=== PATIENT | female | born 1995 | race Caucasian/White ===

== ENCOUNTER 2019-11-29 14:30 | Inpatient (IN) ==
[2019-11-29] MEDS ORDERED: MoRPHine SULFATE 4 MG/ML 1 ML CARP\\VIAL IV STA (14:40)
[2019-11-29] MEDS ORDERED: MULTI-VITAMIN INFUSION 10 ML, THIAMINE HCL 100 MG, FOLIC ACID 1 MG in SODIUM CHLORIDE 0... IV STA (14:40)
[2019-11-29] MEDS ORDERED: ONDANSETRON INJ 2 MG/ML 2 ML VIAL IV STA (14:40)
--- NOTE | 2019-11-29 14:47 | Emergency Department Note ---
History of Present Illness General Chief complaint: Abdominal Pain Stated complaint: RUQ Pain Hx GB removal 1.5 months ago Time Seen by Provider: 11/29/19 14:30 Source: patient Limitations: no limitations History of Present Illness Provider complaint: Upper abdominal pain Onset (ago): hour(s) (This morning) Location: abdomen Radiation: non-radiation Severity: severe Quality: + sharp Exacerbated By: + eating This is a 23-year-old female with a history of alcohol related pancreatitis presenting with upper abdominal pain greater on the right side. It started sometime this morning. She has been drinking heavily and last drank alcohol last night. She is currently a resident at [facility]. She describes her pain as very sharp and worse with eating. She states it is severe and feels similar to when she had pancreatitis. She does state that she has had alcoholic pancreatitis in the past and underwent cholecystectomy about 2 months ago in [place]. She denies any fever, vomiting, chest pain, shortness of breath, urinary symptoms or any chance of . She has no known exposure to COVID or any cough or cold symptoms. She is currently having her period and states that it is normal in timing and flow. Past Med/Surg History Medical History Alcohol dependence Pancreatitis Surgical History Hx of cholecystectomy Social History Preferred Language: Arabic Feels Safe at Home: Yes Smoking Status: Former smoker Hx Alcohol Use: Yes Review of Systems See HPI for pertinent positives & negatives. and A total of 10 systems reviewed and were otherwise negative Physical Exam Vital Signs Vital Signs - 24 hr 11/29/19 14:26 11/29/19 14:40 Temperature 36.7 C Temperature Source Oral Pulse Rate 99 H Pulse Rhythm Regular Pulse Strength Normal Respiratory Rate 22 Respiratory Effort / Characteristics Non-Labored Spontaneous Respiratory Depth Normal Respiratory Pattern Regular Blood Pressure 163/64 H Blood Pressure Mean 97 Blood Pressure Position Lying Pulse Oximetry 100 100 Oxygen Delivery Method Room Air Room Air Sepsis Recent Fever Within 48 Hours No Sepsis New/Unexplained Change in Mental Status No Sepsis Action Taken by Nursing No Action Required Constitutional: Vital signs reviewed. Eyes: Pupils are equal round reactive to light. Conjunctiva are noninjected. ENT: Pharynx is clear without erythema or exudate. Mucous membranes are moist. Neck supple without meningeal signs. Respiratory: Clear to auscultation bilaterally. Breath sounds are equal bilaterally. Cardiovascular: Regular rate and rhythm. No rubs or gallops. GI: Soft, nondistended with epigastric and right upper quadrant tenderness. No guarding. Bowel sounds are present. Musculoskeletal: No peripheral edema. No lower extremity tenderness. Integumentary: No cyanosis. or jaundice. Neurological: The patient is awake and alert. No focal deficits. Psychiatric: Normal affect. Not anxious appearing. Course Administered Medications Discontinued Medications Multivitamins 10 ml/ Thiamine HCl 100 mg/ Folic Acid 1 mg/Sodium Chloride 1,011.2 mls @ 1,011.2 mls/hr IV .Q1H STA Stop: 11/29/19 15:39 Last Admin: 11/29/19 15:00 Dose: 1,011.2 mls/hr Documented by: [id number] Morphine Sulfate (Morphine Sulfate) 4 mg IV NOW STA Stop: 11/29/19 14:41 Last Admin: 11/29/19 15:00 Dose: 4 mg Documented by: [id number] Ondansetron HCl (Zofran) 4 mg IV NOW STA Stop: 11/29/19 14:41 Last Admin: 11/29/19 15:00 Dose: 4 mg Documented by: [id number] Medical Decision Making Differential Diagnosis Pancreatitis, PUD, IBS, choledocholithiasis, IBD Medical Records Attestation: I reviewed the patient's medical records. I did perform a limited focused review of portions of the patient's old chart on the electronic medical record. The patient has had no prior visits to this hospital. Home Medications Current Medication List: was personally reviewed by me Laboratory Data Attestation: I reviewed the patient's lab results. Result diagrams: 11/29/19 14:43 11/29/19 14:43 Lab Results 11/29/19 11/29/19 Range/Units 14:43 14:43 WBC 11.22 H (4.8-10.8) K/uL RBC 4.27 (4.2-5.4) M/uL Hgb 12.7 (12.0-16.0) g/dL Hct 38.7 (37-47) % MCV 90.6 (80-100) fL MCH 29.7 (25-34) pg MCHC 32.8 (32-36) g/dL RDW Std Deviation 41.7 (36.4-46.3) fL RDW Coeff of Lavonne 12.8 (11.5-14.5) % Plt Count 183 (130-400) K/uL MPV 11.5 H (7.4-10.4) fL Immature Gran % (Auto) 0.3 % Neut % (Auto) 74.4 % Lymph % (Auto) 19.7 % [place] % (Auto) 4.3 % Eos % (Auto) 1.1 % Baso % (Auto) 0.2 % Immature Gran # (Auto) 0.03 H (0.00-0.02) K/uL Neut # (Auto) 8.36 H (1.4-6.5) K/uL Lymph # (Auto) 2.21 (1.2-3.4) K/uL [place] # (Auto) 0.48 (0.11-0.59) K/uL Eos # (Auto) 0.12 (0-0.5) K/uL Baso # (Auto) 0.02 (0-0.2) K/uL Sodium 135 L (136-145) mmol/L Potassium 3.2 L (3.5-5.1) mmol/L Chloride 106 (98-107) mmol/L Carbon Dioxide 27 (21-32) mmol/L Anion Gap 2.0 L (3-11) BUN 10 (7-18) mg/dl Creatinine 0.79 (0.6-1.2) mg/dl Est Cr Clr Drug Dosing 101.4 ml/min Est GFR ( Amer) 124.0 Est GFR (Non-Af Amer) 107.0 BUN/Creatinine Ratio 12.9 (10-20) Glucose 79 (70-99) mg/dl Calcium 9.5 (8.5-10.1) mg/dl Total Bilirubin 1.1 H (0.2-1) mg/dl AST 29 (15-37) U/L ALT 31 (12-78) U/L Alkaline Phosphatase 75 (45-117) U/L Total Protein 7.3 (6.4-8.2) gm/dl Albumin 3.9 (3.4-5.0) gm/dl Globulin 3.4 (2.5-4.0) gm/dl Albumin/Globulin Ratio 1.1 (0.9-2) Lipase 1874 H (73-393) U/L Blood Pressure Blood Pressure Findings: Elevated blood pressure Blood Pressure Disposition: Referred to patients primary care provider MDM Narrative I did evaluate the patient as noted above. The patient has a history of alcohol dependence and alcohol induced pancreatitis. She is presenting with upper abdominal pain similar to her prior episodes of pancreatitis. She does state that she had been drinking heavily recently and last drank yesterday. She denies having any withdrawal symptoms at this time. IV access was established. I did treat the patient with a banana bag IV. She was also given IV Zofran and morphine. I did order a urine analysis. I did order and review the patient's blood work as noted in the electronic medical record. Electrolytes demonstrate mild hyponatremia and hyperkalemia. Her white count is 11.22. LFTs are unremarkable. Lipase is over 1800. [facility] She is feeling better at this time. She will be hospitalized for further care and evaluation. I did discuss the case with Dr. Palacio and the case management coordinator. Impression & Plan Pancreatitis, Alcohol dependence Discharge Plan Visit Data Chief Complaint: Abdominal Pain Stated Complaint: RUQ Pain Hx GB removal 1.5 months ago ED Provider: Hakeem Elder Discharge Problem: Pancreatitis, Alcohol dependence Patient Disposition: Being Evaluated by Hospitalist Condition: Good Forms Stand Alone Forms: My [facility] Referrals Referrals: PCP,NO [Primary Care Provider] -
[2019-11-29 15:02] LABS: Basophils # (auto) 0.02 K/uL (0-0.2); Basophils % (auto) 0.2 %; Eosinophils # (auto) 0.12 K/uL (0-0.5); Eosinophils % (auto) 1.1 %; Hematocrit (blood only) 38.7 % (37-47); Hemoglobin 12.7 g/dL (12.0-16.0); Immature Granulocytes # (auto) 0.03 K/uL (0.00-0.02); Immature Granulocytes % (auto) 0.3 %; Lymphocytes # (auto) 2.21 K/uL (1.2-3.4); Lymphocytes % (auto) 19.7 %; Mean Corpuscular Hemoglobin 29.7 pg (25-34); Mean Corpuscular Hgb Conc 32.8 g/dL (32-36); Mean Corpuscular Volume 90.6 fL (80-100); Mean Platelet Volume 11.5 fL (7.4-10.4); Monocytes # (auto) 0.48 K/uL (0.11-0.59); Monocytes % (auto) 4.3 %; Neutrophils # (auto) 8.36 K/uL (1.4-6.5); Neutrophils % (auto) 74.4 %; Platelet Count 183 K/uL (130-400); RDW Coefficient of Variation 12.8 % (11.5-14.5); RDW Standard Deviation 41.7 fL (36.4-46.3); Red Blood Count 4.27 M/uL (4.2-5.4); White Blood Count 11.22 K/uL (4.8-10.8)
[2019-11-29 15:26] LABS: Albumin Level 3.9 gm/dl (3.4-5.0); BUN Creatinine Ratio 12.9 (10-20); Calcium 9.5 mg/dl (8.5-10.1); Creatinine Clr Calc Pharmacy 101.4 ml/min; Potassium 3.2 mmol/L (3.5-5.1)
[2019-11-29 15:29] LABS: Albumin Globulin Ratio 1.1 (0.9-2); Bilirubin,Total 1.1 mg/dl (0.2-1); Globulin 3.4 gm/dl (2.5-4.0); Total Protein 7.3 gm/dl (6.4-8.2)
--- NOTE | 2019-11-29 16:05 | History & Physical Report ---
Date of Service November 29, 2019 Assessment & Plan (1) Pancreatitis: Acute pancreatitis due to alcohol lipase is 1800, WBC minimally elevated, Bili is 1.1 will keep NPO LR at 200cc/hr Dilaudid 1mg IV q4 PRN for pain control repeat labs in the morning if she has an appetite tomorrow would consider liquid diet (2) Alcohol dependence: she was at [facility] for alcohol rehab would anticipate she would go back once medically stable place on alcohol withdrawal protocol with Ativan (3) Hypokalemia: will be on LR, repeat BMP in the morning History of Present Illness Chief Complaint: my belly hurts really bad Primary Care Provider: NO PCP 23 yo female with history of alcohol abuse and recurrent episodes of pancreatitis presents to the ED this morning with severe abdominal pain. She says that she has had three other bouts of pancreatitis, felt like this. She says that her third bout was in [place], she was hospitalized and they removed her gall bladder at that time because they felt that she had sludge, could be contributing. She says that she drinks heavily every single day, hard liquor. She has been drinking heavily for at least the past year. She was in college but she had to drop out due to drinking. She admits to occasionally smoking ma rijuana but no other drug use. She moved back to the area from [place] two days ago to go into alcohol rehab at [facility]. She went on a binge 48 hours ago prior to going into rehab, she cannot recall how much she had to drink. She did not have any pain yesterday when she was admitted to rehab. She woke up this morning with severe epigastric pain. She tried to eat some breakfast which immediately made the pain even worse. She had some nausea but did not vomit. The pain was exactly the same as prior bouts of pancreatitis. The pain got a little better with Morphine 4mg IV in the ED. Her vitals were stable except some slight tachycardia. Lipase was elevated at 1800. LFT normal except bili 1.1. WBC minimally elevated. BUN/Cr normal, K low at 3.2. No imaging done. Kept NPO in the ED. Allergies Allergy/AdvReac Type Severity Reaction Status Date / Time No Known Allergies Allergy Verified 11/29/19 16:42 Home Medications Home Medications Medication Instructions Recorded Confirmed Type Excedrin Otc 2 tabs PO Q6H PRN MDD 8 Tablets/24 11/29/19 History Hours Mucinex 400 Mg 400 mg PO Q6H PRN 11/29/19 History acetaminophen 650 mg PO QID PRN 11/29/19 11/29/19 History alum-mag hydroxide-simeth [Maalox 30 ml PO TID PRN 11/29/19 11/29/19 History Advanced] bisacodyl 15 mg PO DAILY PRN 11/29/19 11/29/19 History calcium carbonate [Tums] See Rx Instructions .ROUTE 11/29/19 11/29/19 History .COMPLEX PRN MDD 15 Tablets/24 Hours clonidine HCl 0.1 mg PO TID PRN 11/29/19 11/29/19 History diazepam [Valium] 10 mg PO DIRECTED PRN 11/29/19 11/29/19 History diazepam [Valium] 10 mg PO DIRECTED PRN 11/29/19 11/29/19 History diazepam [Valium] See Rx Instructions .ROUTE .COMPLEX 11/29/19 11/29/19 History dicyclomine 20 mg PO TID PRN 11/29/19 11/29/19 History diphenhydramine HCl [Benadryl] 25 - 50 mg PO Q6H PRN 11/29/19 11/29/19 History docusate sodium [Colace] 100 mg PO DAILY PRN 11/29/19 11/29/19 History doxepin 50 mg PO HS PRN 11/29/19 11/29/19 History folic acid 1 mg PO DAILY 11/29/19 11/29/19 History hydroxyzine pamoate [Vistaril] 50 mg PO TID PRN 11/29/19 11/29/19 History ibuprofen 600 mg PO QID PRN 11/29/19 11/29/19 History levetiracetam See Rx Instructions .ROUTE .COMPLEX 11/29/19 11/29/19 History loperamide [Imodium A-D] 4 mg PO QID PRN 11/29/19 11/29/19 History loratadine [Claritin] 10 mg PO DAILY PRN 11/29/19 11/29/19 History magnesium hydroxide [Milk of 30 ml PO DAILY PRN 11/29/19 11/29/19 History Magnesia] melatonin 5 mg PO HS PRN 11/29/19 11/29/19 History menthol [Cough Drops] See Rx Instructions .ROUTE 11/29/19 11/29/19 History .COMPLEX PRN naloxone 0.4 mg IM DIRECTED PRN 11/29/19 11/29/19 History norethindrone-e.estradiol-iron [Lo 1 tab PO DAILY 11/29/19 11/29/19 History Loestrin Fe] ondansetron HCl [Zofran] 8 mg PO TID PRN 11/29/19 11/29/19 History pantoprazole 20 mg PO DAILY 11/29/19 11/29/19 History polyethylene glycol 3350 [Miralax] See Rx Instructions .ROUTE 11/29/19 11/29/19 History .COMPLEX PRN promethazine 25 mg PO QID PRN 11/29/19 11/29/19 History simethicone [Gas-X Extra Strength] 250 mg PO BID PRN 11/29/19 11/29/19 History thiamine HCl (vitamin B1) 100 mg PO DAILY 11/29/19 11/29/19 History Past Med/Surg History Medical History Alcohol dependence Pancreatitis Surgical History Hx of cholecystectomy Family History (Updated 11/29/19 @ 16:47 by Gilbert Palacio DO) Other Hypertension Social History Preferred Language: Libyan Feels Safe at Home: Yes Smoking Status: Former smoker Hx Alcohol Use: Yes Review of Systems Review of Systems: All systems reviewed & are unremarkable except as noted in HPI & below Constitutional: no fever, no chills, no sweats, no fatigue and no weakness Respiratory: no cough and no dyspnea Cardiovascular: no chest pain, no palpitations, no syncope and no edema Gastrointestinal: + abdominal pain (epigastric, severe, better leaning forward), + early satiety and + nausea; no vomiting, no constipation, no diarrhea/loose stools and no melena Genitourinary: no dysuria, no difficulty urinating and no urinary frequency Physical Exam Constitutional: WD/WN, vitals as above + ill appearing; no acute distress and + uncomfortable Eyes: PERRL, conjunctivae normal, anicteric sclerae ENMT: external ear and nose normal, oropharynx normal Neck: trachea midline, no thyromegaly Respiratory: normal respiratory effort, lungs clear to auscultation Cardiovascular: Rate/Rhythm: regular rhythm and + tachycardic Heart Sounds: normal S1 and normal S2; no murmur Extremities: normal capillary refill; no edema Gastrointestinal (Abdomen): Inspection/Auscultation: abdomen normal to inspection and normal bowel sounds; abdomen not distended Percussion/Palpation: + abdomen tender (epigastric) and abdomen soft; no guarding and abdomen not rigid Musculoskeletal: no cyanosis or clubbing, extremities motor strength 5/5 Skin: no rashes, warm and dry Neurologic: patellar DTR's 2+ bilat, sensation intact and PERRL, EOMI, accommodation nl, no face palsy, no dysarthria Psychiatric: A+Ox3, euthymic affect Lymphatic: no cervical or axillary lymphadenopathy Results & Data Results & Data ([facility]) Vital Signs (Past 12 Hours) Vital Signs Temp Pulse Resp BP Pulse Ox 11/29/19 14:40 100 11/29/19 14:26 36.7 C 99 H 22 163/64 H 100 Laboratory Results Laboratory Results - last 24 hr 11/29/19 11/29/19 11/29/19 14:43 14:43 16:13 WBC 11.22 H RBC 4.27 Hgb 12.7 Hct 38.7 MCV 90.6 MCH 29.7 MCHC 32.8 RDW Std Deviation 41.7 RDW Coeff of Lavonne 12.8 Plt Count 183 MPV 11.5 H Immature Gran % (Auto) 0.3 Neut % (Auto) 74.4 Lymph % (Auto) 19.7 [place] % (Auto) 4.3 Eos % (Auto) 1.1 Baso % (Auto) 0.2 Immature Gran # (Auto) 0.03 H Neut # (Auto) 8.36 H Lymph # (Auto) 2.21 [place] # (Auto) 0.48 Eos # (Auto) 0.12 Baso # (Auto) 0.02 Sodium 135 L Potassium 3.2 L Chloride 106 Carbon Dioxide 27 Anion Gap 2.0 L BUN 10 Creatinine 0.79 Est Cr Clr Drug Dosing 101.4 Est GFR ( Amer) 124.0 Est GFR (Non-Af Amer) 107.0 BUN/Creatinine Ratio 12.9 Glucose 79 Calcium 9.5 Total Bilirubin 1.1 H AST 29 ALT 31 Alkaline Phosphatase 75 Total Protein 7.3 Albumin 3.9 Globulin 3.4 Albumin/Globulin Ratio 1.1 Lipase 1874 H Urine Color Urine Appearance Urine pH Ur Specific [place] Urine Protein Urine Glucose (UA) Urine Ketones Urine Blood Urine Nitrite Urine Bilirubin Urine Urobilinogen Ur Leukocyte Esterase POC Ur Test NEG 11/29/19 16:13 WBC RBC Hgb Hct MCV MCH MCHC RDW Std Deviation RDW Coeff of Lavonne Plt Count MPV Immature Gran % (Auto) Neut % (Auto) Lymph % (Auto) [place] % (Auto) Eos % (Auto) Baso % (Auto) Immature Gran # (Auto) Neut # (Auto) Lymph # (Auto) [place] # (Auto) Eos # (Auto) Baso # (Auto) Sodium Potassium Chloride Carbon Dioxide Anion Gap BUN Creatinine Est Cr Clr Drug Dosing Est GFR ( Amer) Est GFR (Non-Af Amer) BUN/Creatinine Ratio Glucose Calcium Total Bilirubin AST ALT Alkaline Phosphatase Total Protein Albumin Globulin Albumin/Globulin Ratio Lipase Urine Color Pending Urine Appearance Pending Urine pH Pending Ur Specific [place] Pending Urine Protein Pending Urine Glucose (UA) Pending Urine Ketones Pending Urine Blood Pending Urine Nitrite Pending Urine Bilirubin Pending Urine Urobilinogen Pending Ur Leukocyte Esterase Pending POC Ur Test Code Status & VTE Plan VTE Prophylaxis Plan VTE Prophylaxis will be ordered: No PG Care Time/CCT Total # of Minutes Spent Total Time Spent with Patient: Total time spent is greater than 50% in coordination of care (as documented) at patient's floor/unit and/or counseling patient: Coding Level of Care Code 58899 Initial Inpt Care Lvl 3 Diagnoses Pancreatitis K85.20 Acute pancreatitis complication: no infection or necrosis Chronicity: acute Pancreatitis type: alcohol induced Alcohol dependence F10.29 Substance use status: unspecified alcohol-induced disorder Hypokalemia E87.6 (1) Alcohol dependence Substance use status: unspecified alcohol-induced disorder Qualified Code(s): F10.29 - Alcohol dependence with unspecified alcohol-induced disorder (2) Pancreatitis Acute pancreatitis complication: no infection or necrosis Chronicity: acute Pancreatitis type: alcohol induced Qualified Code(s): K85.20 - Alcohol induced acute pancreatitis without necrosis or infection
[2019-11-29 16:26] LABS: Appearance Urine Clear (Clear); Bilirubin Urine Negative (Negative); Blood Urine 2+ (Negative); Color Urine Yellow; Glucose Urine UA Negative (Negative); Ketones Urine Negative (Negative); Leukocyte Esterase Urine Negative (Negative); Nitrite Urine Negative (Negative); Protein Urine Negative (Negative); Specific Gravity Urine 1.008 (1.000-1.030); Urobilinogen Urine Negative (Negative); pH Urine 6.5 (4.5-7.5)
[2019-11-29] MEDS ORDERED: HYDROmorphone INJ 1 MG/ML SYRINGE IV STA (16:35)
[2019-11-29] MEDS ORDERED: LORazepam 1 MG/2 ML VIAL IV PRN (16:58)
[2019-11-29 17:13] LABS: Epithelial Cell Urine >30 /lpf (0-5)
[2019-11-29 17:14] LABS: Bacteria Urine 1+ (Negative); WBC Urine 0-5 /hpf (0-5)
[2019-11-29] MEDS: LACTATED RINGER'S 1,000 ML IV SCH ×2 (17:16→22:16)
[2019-11-29] MEDS: HYDROmorphone INJ 1 MG/ML SYRINGE IV PRN ×2 (17:19→21:19)
[2019-11-29] MEDS: FOLIC ACID 1 MG in SYRINGE 9.8 ML IV SCH (18:26)
[2019-11-29] MEDS: THIAMINE HCL 100 MG in SYRINGE 9 ML IV SCH (18:26)
[2019-11-29] MEDS: DiphenhydrAMINE HCL 50 MG/ML VIAL IV PRN (18:32)
[2019-11-30] MEDS: DiphenhydrAMINE HCL 50 MG/ML VIAL IV PRN ×3 (00:28→21:45)
[2019-11-30] MEDS: HYDROmorphone INJ 1 MG/ML SYRINGE IV PRN ×6 (01:51→23:00)
[2019-11-30] MEDS: LACTATED RINGER'S 1,000 ML IV SCH ×4 (03:21→20:09)
[2019-11-30 05:52] LABS: Hematocrit (blood only) 35.7 % (37-47); Hemoglobin 11.8 g/dL (12.0-16.0); Mean Corpuscular Hemoglobin 30.3 pg (25-34); Mean Corpuscular Hgb Conc 33.1 g/dL (32-36); Mean Corpuscular Volume 91.5 fL (80-100); Mean Platelet Volume 11.6 fL (7.4-10.4); Platelet Count 156 K/uL (130-400); RDW Coefficient of Variation 12.6 % (11.5-14.5); RDW Standard Deviation 42.5 fL (36.4-46.3); White Blood Count 6.04 K/uL (4.8-10.8)
--- NOTE | 2019-11-30 06:14 | Communication Note ---
Date of Service: November 30, 2019 Pamela reports she has had increased vaginal itching overnight with some white thick discharge. She reports she has a history of similar symptoms and devel opment of yeast infections after taking opioid pain medication. Her current symptoms feel the same as yeast infections she has had that have cleared with diflucan in the past. She denies recent antibiotic use. Denies vaginal bleeding although notes her period is about to start soon. Denies green/purulent vaginal discharge. Endorses some itching with urination, but no increased urinary frequency. UA on admit with increased epithelial cells, no LE. Suspicious for BV, diflucan ordered for 0900 x1
[2019-11-30 06:37] LABS: Albumin Level 3.4 gm/dl (3.4-5.0); BUN Creatinine Ratio 7.3 (10-20); Bilirubin Direct 1.6 mg/dl (0-0.2); Bilirubin,Total 3.1 mg/dl (0.2-1); Calcium 9.2 mg/dl (8.5-10.1); Creatinine Clr Calc Pharmacy 123.2 ml/min; Est GFR (African American) 147.1; Est GFR (Non-African American) 126.9; Potassium 2.9 mmol/L (3.5-5.1); Total Protein 6.6 gm/dl (6.4-8.2)
[2019-11-30] MEDS: FOLIC ACID 1 MG in SYRINGE 9.8 ML IV SCH (08:26)
[2019-11-30] MEDS: THIAMINE HCL 100 MG in SYRINGE 9 ML IV SCH (08:26)
[2019-11-30] MEDS: POTASSIUM CHLORIDE / WTR 10 MEQ/100 ML PLCT IV SCH ×4 (08:34→12:17)
[2019-11-30] MEDS ORDERED: NITROFURANTOIN MONOHYDRATE 100 MG CAP PO SCH (09:00)
[2019-11-30] MEDS ORDERED: FLUCONAZOLE 50 MG TAB PO ONE (09:00)
[2019-11-30] MEDS: ONDANSETRON INJ 2 MG/ML 2 ML VIAL IV PRN ×2 (11:03→18:41)
--- NOTE | 2019-11-30 11:19 | Hospitalist Progress Note ---
Date of Service November 30, 2019 Assessment & Plan (1) Pancreatitis: Acute pancreatitis due to alcohol lipase down to 1300 from 1800 on admission allow clear liquids today, she knows not to drink too much continue LR at 200cc/hr, consider reducing fluid rate tomorrow Dilaudid 1mg IV q4 PRN for pain control, working thus far repeat labs in the morning (2) Alcohol dependence: she was at [facility] for alcohol rehab would anticipate she would go back once medically stable place on alcohol withdrawal protocol with Ativan no signs of withdrawal today (3) Hypokalemia: K down to 2.9 from 3.2 despite LR will give KCl via IV repeat K in the morning (4) Transaminitis: likely due to alcohol binge prior to admission AST is > 2:1 to ALT follow LFT daily (5) Hepatitis: as above, likely mild alcohol hepatitis bili up to 3.1, AST 400 and ALT 100 follow daily (6) Vaginal candidiasis: use Miconazole topically as do not want to give fluconazole with transaminitis Admission and Anticipated Discharge Date Admission Date: November 29, 2019 Anticipated date of discharge: 12/03/19 Subjective patient feeling better but still with a lot of pain she has an appetite, will allow some clear liquids, told her to sip K low this AM at 2.9, KCl is burning her arm lipase coming down slightly, still elevated BUN and Cr stable, bili up to 3.1, AST up to 407 and ALT 140 reviewed communication report, concerns for vaginal candidiasis patient says she has had candidiasis before, exact same symptoms will treat with topical miconazole as LFT up, want to avoid fluconazole Review of Systems Review of Systems: All systems reviewed & are unremarkable except as noted in HPI & below Constitutional: + weakness; no fever, no chills, no sweats and no fatigue Respiratory: no cough and no dyspnea Cardiovascular: no chest pain, no syncope and no edema Gastrointestinal: + abdominal pain (epigastric); no nausea, no vomiting, no constipation and no diarrhea/loose stools Genitourinary: + genital itching and + vaginal discharge Physical Exam Constitutional: WD/WN, vitals as above no acute distress and + uncomfortable Eyes: PERRL, conjunctivae normal, anicteric sclerae ENMT: external ear and nose normal, oropharynx normal Neck: trachea midline, no thyromegaly Respiratory: normal respiratory effort, lungs clear to auscultation Cardiovascular: Rate/Rhythm: regular rhythm and + tachycardic Heart Sounds: normal S1 and normal S2; no murmur Extremities: normal capillary refill; no edema Gastrointestinal (Abdomen): Inspection/Auscultation: abdomen normal to inspection and normal bowel sounds; abdomen not distended Percussion/Palpation: + abdomen tender (epigastric) and abdomen soft; no guarding and abdomen not rigid Musculoskeletal: no cyanosis or clubbing, extremities motor strength 5/5 Skin: no rashes, warm and dry Neurologic: patellar DTR's 2+ bilat, sensation intact and PERRL, EOMI, accommodation nl, no face palsy, no dysarthria Psychiatric: A+Ox3, euthymic affect Lymphatic: no cervical or axillary lymphadenopathy Results & Data Results & Data ([facility]) Vital Signs (Past 12 Hours) Vital Signs Temp Pulse Resp BP BP Pulse Ox 11/30/19 07:43 36.6 C 85 18 107/67 98 11/30/19 06:24 36.5 C 75 16 137/78 100 11/30/19 01:57 36.4 C L 93 H 18 138/91 100 Laboratory Results Laboratory Results - last 24 hr 11/29/19 11/29/19 11/29/19 14:43 14:43 16:13 WBC 11.22 H RBC 4.27 Hgb 12.7 Hct 38.7 MCV 90.6 MCH 29.7 MCHC 32.8 RDW Std Deviation 41.7 RDW Coeff of Lavonne 12.8 Plt Count 183 MPV 11.5 H Immature Gran % (Auto) 0.3 Neut % (Auto) 74.4 Lymph % (Auto) 19.7 Toole % (Auto) 4.3 Eos % (Auto) 1.1 Baso % (Auto) 0.2 Immature Gran # (Auto) 0.03 H Neut # (Auto) 8.36 H Lymph # (Auto) 2.21 Toole # (Auto) 0.48 Eos # (Auto) 0.12 Baso # (Auto) 0.02 Sodium 135 L Potassium 3.2 L Chloride 106 Carbon Dioxide 27 Anion Gap 2.0 L BUN 10 Creatinine 0.79 Est Cr Clr Drug Dosing 101.4 Est GFR ( Amer) 124.0 Est GFR (Non-Af Amer) 107.0 BUN/Creatinine Ratio 12.9 Glucose 79 Calcium 9.5 Total Bilirubin 1.1 H Direct Bilirubin AST 29 ALT 31 Alkaline Phosphatase 75 Total Protein 7.3 Albumin 3.9 Globulin 3.4 Albumin/Globulin Ratio 1.1 Lipase 1874 H Folate Urine Color Urine Appearance Urine pH Ur Specific Redding Urine Protein Urine Glucose (UA) Urine Ketones Urine Blood Urine Nitrite Urine Bilirubin Urine Urobilinogen Ur Leukocyte Esterase Urine RBC Urine WBC Ur Epithelial Cells Urine Bacteria POC Ur Test NEG Nasal Screen MRSA (PCR) 11/29/19 11/29/19 11/29/19 16:13 17:09 17:30 WBC RBC Hgb Hct MCV MCH MCHC RDW Std Deviation RDW Coeff of Lavonne Plt Count MPV Immature Gran % (Auto) Neut % (Auto) Lymph % (Auto) Toole % (Auto) Eos % (Auto) Baso % (Auto) Immature Gran # (Auto) Neut # (Auto) Lymph # (Auto) Toole # (Auto) Eos # (Auto) Baso # (Auto) Sodium Potassium Chloride Carbon Dioxide Anion Gap BUN Creatinine Est Cr Clr Drug Dosing Est GFR ( Amer) Est GFR (Non-Af Amer) BUN/Creatinine Ratio Glucose Calcium Total Bilirubin Direct Bilirubin AST ALT Alkaline Phosphatase Total Protein Albumin Globulin Albumin/Globulin Ratio Lipase Folate > 24.00 Urine Color Yellow Urine Appearance Clear Urine pH 6.5 Ur Specific Redding 1.008 Urine Protein Negative Urine Glucose (UA) Negative Urine Ketones Negative Urine Blood 2+ H Urine Nitrite Negative Urine Bilirubin Negative Urine Urobilinogen Negative Ur Leukocyte Esterase Negative Urine RBC 5-10 H Urine WBC 0-5 Ur Epithelial Cells >30 H Urine Bacteria 1+ H POC Ur Test Nasal Screen MRSA (PCR) Negative 11/30/19 11/30/19 05:26 05:26 WBC 6.04 RBC 3.90 L Hgb 11.8 L Hct 35.7 L MCV 91.5 MCH 30.3 MCHC 33.1 RDW Std Deviation 42.5 RDW Coeff of Lavonne 12.6 Plt Count 156 MPV 11.6 H Immature Gran % (Auto) Neut % (Auto) Lymph % (Auto) Toole % (Auto) Eos % (Auto) Baso % (Auto) Immature Gran # (Auto) Neut # (Auto) Lymph # (Auto) Toole # (Auto) Eos # (Auto) Baso # (Auto) Sodium 139 Potassium 2.9 L Chloride 107 Carbon Dioxide 25 Anion Gap 7.0 BUN 5 L D Creatinine 0.65 Est Cr Clr Drug Dosing 123.2 Est GFR ( Amer) 147.1 Est GFR (Non-Af Amer) 126.9 BUN/Creatinine Ratio 7.3 L Glucose 72 Calcium 9.2 Total Bilirubin 3.1 H D Direct Bilirubin 1.6 H AST 407 H ALT 140 H Alkaline Phosphatase 106 Total Protein 6.6 Albumin 3.4 Globulin Albumin/Globulin Ratio Lipase 1352 H Folate Urine Color Urine Appearance Urine pH Ur Specific Redding Urine Protein Urine Glucose (UA) Urine Ketones Urine Blood Urine Nitrite Urine Bilirubin Urine Urobilinogen Ur Leukocyte Esterase Urine RBC Urine WBC Ur Epithelial Cells Urine Bacteria POC Ur Test Nasal Screen MRSA (PCR) Medications Administered Current Inpatient Medications Diphenhydramine HCl (Benadryl) 25 mg IV Q6 PRN PRN Reason: Itching Stop: 12/29/19 18:11 Last Admin: 11/30/19 00:28 Dose: 25 mg Documented by: Hydromorphone HCl (Dilaudid) 1 mg IV Q4 PRN PRN Reason: Pain Stop: 12/13/19 16:57 Last Admin: 11/30/19 10:30 Dose: 1 mg Documented by: Lactated Ringer's (Lr) 1,000 mls @ 200 mls/hr IV .Q5H MARIAELENA Stop: 12/29/19 16:57 Last Admin: 11/30/19 08:26 Dose: 200 mls/hr Documented by: Lorazepam (Ativan) 1 mg in 2 mls @ 2 mls/min IV ONE PRN; Protocol PRN Reason: EtoH Withdrawal AWSS 6-10 Stop: 12/29/19 16:57 Last Admin: 11/29/19 19:57 Dose: 2 mls/min Documented by: Thiamine HCl 100 mg/ Syringe 10 mls @ 2 mls/min IV QAM MARIAELENA Stop: 12/29/19 17:59 Last Admin: 11/30/19 08:26 Dose: 2 mls/min Documented by: Folic Acid 1 mg/ Syringe 10 mls @ 5 mls/min IV QAM MARIAELENA Stop: 12/29/19 17:59 Last Admin: 11/30/19 08:26 Dose: 5 mls/min Documented by: Potassium Chloride (K Uriel / Wtr) 10 meq in 100 mls @ 100 mls/hr IV Q1H MARIAELENA Stop: 11/30/19 12:29 Last Admin: 11/30/19 11:03 Dose: 80 mls/hr Documented by: Miconazole Nitrate (Monistat 7 Vag) 1 supp PV HS MARIAELENA Stop: 12/07/19 20:59 Ondansetron HCl (Zofran) 4 mg IV Q6H PRN PRN Reason: Nausea Stop: 12/29/19 16:57 Last Admin: 11/30/19 11:03 Dose: 4 mg Documented by: PG Care Time/CCT Total # of Minutes Spent Total Time Spent with Patient: Total time spent is greater than 50% in coordination of care (as documented) at patient's floor/unit and/or counseling patient: Coding Level of Care Code 51690 Subseq Hosp Care Lvl 3 Diagnoses Pancreatitis K85.20 Acute pancreatitis complication: no infection or necrosis Chronicity: acute Pancreatitis type: alcohol induced Alcohol dependence F10.29 Substance use status: unspecified alcohol-induced disorder Hypokalemia E87.6 Transaminitis R74.0 Hepatitis K75.9 Vaginal candidiasis B37.3 (1) Pancreatitis Acute pancreatitis complication: no infection or necrosis Chronicity: acute Pancreatitis type: alcohol induced Qualified Code(s): K85.20 - Alcohol induced acute pancreatitis without necrosis or infection (2) Alcohol dependence Substance use status: unspecified alcohol-induced disorder Qualified Code(s): F10.29 - Alcohol dependence with unspecified alcohol-induced disorder
[2019-11-30] MEDS: MICONAZOLE NITRATE-7 (100 MG EA SUPP) BOX PV SCH (21:42)
[2019-12-01] MEDS: LACTATED RINGER'S 1,000 ML IV SCH ×5 (01:31→21:17)
[2019-12-01] MEDS: ONDANSETRON INJ 2 MG/ML 2 ML VIAL IV PRN ×3 (01:32→13:52)
[2019-12-01] MEDS: DiphenhydrAMINE HCL 50 MG/ML VIAL IV PRN ×2 (03:18→08:33)
[2019-12-01] MEDS: HYDROmorphone INJ 1 MG/ML SYRINGE IV PRN ×5 (03:18→21:16)
[2019-12-01 05:56] LABS: Hematocrit (blood only) 40.5 % (37-47); Hemoglobin 13.5 g/dL (12.0-16.0); Mean Corpuscular Hemoglobin 30.8 pg (25-34); Mean Corpuscular Hgb Conc 33.3 g/dL (32-36); Mean Corpuscular Volume 92.3 fL (80-100); Mean Platelet Volume 11.8 fL (7.4-10.4); Platelet Count 160 K/uL (130-400); RDW Coefficient of Variation 12.5 % (11.5-14.5); RDW Standard Deviation 42.5 fL (36.4-46.3); Red Blood Count 4.39 M/uL (4.2-5.4); White Blood Count 3.95 K/uL (4.8-10.8)
[2019-12-01 06:02] LABS: Prothrombin Time 10.5 Seconds (9.0-12.0)
[2019-12-01 06:23] LABS: Alanine Aminotransferase 193 U/L (12-78); Albumin Level 4.1 gm/dl (3.4-5.0); Aspartate Aminotransferase 358 U/L (15-37); BUN Creatinine Ratio 1.8 (10-20); Blood Urea Nitrogen 1 mg/dl (7-18); Calcium 10.4 mg/dl (8.5-10.1); Carbon Dioxide 25 mmol/L (21-32); Chloride 102 mmol/L (98-107); Creatinine Clr Calc Pharmacy 131.3 ml/min; Est GFR (African American) > 150.0; Est GFR (Non-African American) 129.6; Glucose 64 mg/dl (70-99); Lipase 512 U/L (73-393); Potassium 3.2 mmol/L (3.5-5.1); Sodium 135 mmol/L (136-145)
[2019-12-01 06:29] LABS: Alkaline Phosphatase 190 U/L (45-117); Bilirubin,Total 2.2 mg/dl (0.2-1); Globulin 4.1 gm/dl (2.5-4.0); Total Protein 8.2 gm/dl (6.4-8.2)
--- NOTE | 2019-12-01 08:03 | Hospitalist Progress Note ---
Date of Service December 01, 2019 Assessment & Plan (1) Pancreatitis: Acute pancreatitis due to alcohol lipase is trending downward, but still elevated along with liver transaminases continue LR reducing fluid rate 11/30 Dilaudid 1mg IV q4 PRN for pain control, working thus far (2) Alcohol dependence: she was at [facility] for alcohol rehab would anticipate she would go back once medically stable place on alcohol withdrawal protocol no signs of withdrawal (3) Hypokalemia: remains low, will need to replete will try po (4) Transaminitis: likely due to alcohol binge prior to admission AST is > 2:1 to ALT follow LFT daily, if not good improvement may consider liver pancreatic ultrasound (5) Hepatitis: as above, likely mild alcohol hepatitis bili up to 3.1 now trended down to 2.2, AST and ALT remain elevated but improving (6) Vaginal candidiasis: use Miconazole topically as do not want to give fluconazole with transaminitis Admission and Anticipated Discharge Date Admission Date: November 29, 2019 Subjective Patient states she feels somewhat better she still having postprandial discomfort although she is only having clear liquids. She has had less tremulous and agitation feels she is getting through alcohol withdrawal fairly well. She is pressured as she has had multiple recurrences of her pancreatitis. Review of Systems Review of Systems: Mild distress and fatigue no headache, blurry or double vision no speech or swallowing issues no chest pain, pressure or palpitations no shortness of breath, cough or wheezes Central abdominal pain rating to her back mild nausea no vomiting no diarrhea no dysuria, hematuria or frequency, improvement of vaginal candidiasis no focal joint pain or swelling no back pain, CVA tenderness or radicular pain no bruising, bleeding or rashes no focal signs of weakness or numbness or altered sensation no complaints or anxiety or depression Physical Exam Physical Exam: The patient appeared well nourished and normally developed. Vital signs as documented. Head exam is unremarkable. No scleral icterus Neck is without JVD, thyromegaly, or carotid bruits. Lungs are clear to auscultation and percussion. Cardiac exam, Rhythm is regular.. No murmurs, rubs or gallops. Abdominal exam reveals normal bowel sounds, mild epigastric distress left upper quadrant distress Extremities are nonedematous and both pedal pulses are normal. Neurologic exam is alert and oriented, no focal loss of strength or sensation Skin is without bruises or rashes Psychologically is without concerns for anxiety or depression Results & Data Results & Data ([facility]) Vital Signs (Past 12 Hours) Vital Signs Temp Pulse Pulse Resp BP BP Pulse Ox 12/01/19 07:07 97.5 F L 71 16 108/68 100 11/30/19 23:09 98.1 F 97 H 14 137/83 100 11/30/19 20:10 97.7 F 91 H 16 125/82 99 PG Care Time/CCT Total # of Minutes Spent Total Time Spent with Patient: Total time spent is greater than 50% in c oordination of care (as documented) at patient's floor/unit and/or counseling patient: Coding Level of Care Code 73647 Subseq Hosp Care Lvl 3 Diagnoses Pancreatitis K85.20 Acute pancreatitis complication: no infection or necrosis Chronicity: acute Pancreatitis type: alcohol induced Alcohol dependence F10.29 Substance use status: unspecified alcohol-induced disorder Hypokalemia E87.6 Transaminitis R74.0 Hepatitis K75.9 Vaginal candidiasis B37.3 (1) Alcohol dependence Substance use status: unspecified alcohol-induced disorder Qualified Code(s): F10.29 - Alcohol dependence with unspecified alcohol-induced disorder (2) Pancreatitis Acute pancreatitis complication: no infection or necrosis Chronicity: acute Pancreatitis type: alcohol induced Qualified Code(s): K85.20 - Alcohol induced acute pancreatitis without necrosis or infection
[2019-12-01] MEDS: FOLIC ACID 1 MG in SYRINGE 9.8 ML IV SCH (08:33)
[2019-12-01] MEDS: THIAMINE HCL 100 MG in SYRINGE 9 ML IV SCH (08:33)
[2019-12-01] MEDS: POTASSIUM CHLORIDE 20 MEQ TABCR PO SCH ×2 (08:40→21:17)
[2019-12-01] MEDS ORDERED: DOCUSATE SODIUM/SENNA 50/8.6MG TAB PO ONE (18:02)
[2019-12-01] MEDS: OXYCODONE HCL IR 5 MG TAB (IMMEDIATE RELEASE) PO PRN (18:30)
[2019-12-01] MEDS ORDERED: PROMETHAZINE HCL 12.5 MG in SODIUM CHLORIDE 0.9% 50 ML IV PRN (18:45)
[2019-12-01] MEDS: MICONAZOLE NITRATE-7 (100 MG EA SUPP) BOX PV SCH (21:21)
[2019-12-02] MEDS: OXYCODONE HCL IR 5 MG TAB (IMMEDIATE RELEASE) PO PRN ×2 (01:26→07:33)
[2019-12-02] MEDS: LACTATED RINGER'S 1,000 ML IV SCH ×2 (02:26→07:27)
[2019-12-02] MEDS: HYDROmorphone INJ 1 MG/ML SYRINGE IV PRN (04:19)
[2019-12-02 05:55] LABS: Alanine Aminotransferase 142 U/L (12-78); Albumin Level 3.3 gm/dl (3.4-5.0); Alkaline Phosphatase 154 U/L (45-117); Aspartate Aminotransferase 180 U/L (15-37); Blood Urea Nitrogen < 1 mg/dl (7-18); Calcium 9.4 mg/dl (8.5-10.1); Carbon Dioxide 27 mmol/L (21-32); Chloride 104 mmol/L (98-107); Creatinine Clr Calc Pharmacy 117.8 ml/min; Est GFR (African American) 144.9; Glucose 100 mg/dl (70-99); Lipase 325 U/L (73-393); Potassium 3.7 mmol/L (3.5-5.1); Sodium 136 mmol/L (136-145); Total Protein 6.6 gm/dl (6.4-8.2)
[2019-12-02 06:04] LABS: Bilirubin Direct 0.5 mg/dl (0-0.2)
[2019-12-02] MEDS: POTASSIUM CHLORIDE 20 MEQ TABCR PO SCH (08:45)
[2019-12-02] MEDS: FOLIC ACID 1 MG in SYRINGE 9.8 ML IV SCH (08:46)
[2019-12-02] MEDS: THIAMINE HCL 100 MG in SYRINGE 9 ML IV SCH (08:46)
[2019-12-02] MEDS: ONDANSETRON INJ 2 MG/ML 2 ML VIAL IV PRN (09:02)
--- NOTE | 2019-12-02 12:39 | Discharge Summary ---
Date of Service December 02, 2019 Admission HPI Per Admitting Provider 23 yo female with history of alcohol abuse and recurrent episodes of pancreatitis presents to the ED this morning with severe abdominal pain. She says that she has had three other bouts of pancreatitis, felt like this. She says that her third bout was in [place], she was hospitalized and they removed her gall bladder at that time because they felt that she had sludge, could be contributing. She says that she drinks heavily every single day, hard liquor. She has been drinking heavily for at least the past year. She was in college but she had to drop out due to drinking. She admits to occasionally smoking m gonzalojuana but no other drug use. She moved back to the area from [place] two days ago to go into alcohol rehab at [facility]. She went on a binge 48 hours ago prior to going into rehab, she cannot recall how much she had to drink. She did not have any pain yesterday when she was admitted to rehab. She woke up this morning with severe epigastric pain. She tried to eat some breakfast which immediately made the pain even worse. She had some nausea but did not vomit. The pain was exactly the same as prior bouts of pancreatitis. The pain got a little better with Morphine 4mg IV in the ED. Her vitals were stable except some slight tachycardia. Lipase was elevated at 1800. LFT normal except bili 1.1. WBC minimally elevated. BUN/Cr normal, K low at 3.2. No imaging done. Kept NPO in the ED. Principal Diagnosis Pancreatitis associate with alcohol abuse Alcoholic hepatitis Alcohol withdrawal Discharge Exam The patient appeared well nourished and normally developed. Vital signs as documented. Head exam is unremarkable. No scleral icterus Neck is without JVD, thyromegaly, or carotid bruits. Lungs are clear to auscultation and percussion. Cardiac exam, Rhythm is regular.. No murmurs, rubs or gallops. Abdominal exam reveals normal bowel sounds, no masses, no organomegaly and no aortic enlargement Extremities are nonedematous and both pedal pulses are normal. Neurologic exam is alert and oriented, no focal loss of strength or sensation Skin is without bruises or rashes Psychologically is without concerns for anxiety or depression Discharge Data Allergies Allergy/AdvReac Type Severity Reaction Status Date / Time No Known Allergies Allergy Verified 04/18/20 16:42 Consultations 11/29/19 15:51 ED Decision to Admit Stat Hospital Course (1) Pancreatitis: Acute pancreatitis due to alcohol Laboratories are returned to normal pain is resolved (2) Alcohol dependence: she was at [facility] for alcohol rehab would anticipate she would go back once medically stable place on alcohol withdrawal protocol will complete 14 additional days of levetiracetam for alcohol withdrawal no signs of withdrawal (3) Hypokalemia: replete (4) Transaminitis: likely due to alcohol binge prior to admission AST is > 2:1 to ALT Levels are returning to normal no additional monitoring needed (5) Hepatitis: as above, resolved and likely mild alcohol hepatitis (6) Vaginal candidiasis: use Miconazole topically as do not want to give fluconazole with transaminitis Total Time Total Time Spent Total Time Spent (In Minutes): It required greater than 30 minutes to prepare this patient for discharge Discharge Plan Discharge Items Patient Disposition: Drug & Alcohol Rehab Reason For Visit: RUQ Pain Hx GB removal 1.5 months ago Discharge Diagnosis: alcoholic hepatitis, pancreatitis Condition on Discharge: Good Activity: Resume your previous activity Non-emergency contact: Primary Care Provider Call non-emergency contact if: you have any medication questions and your symptoms worsen Follow-up/Referrals: PCP,NO [Primary Care Provider] - Diet: Regular Addtl Attending Provider Instructions: Please return to inpatient rehab, Please do not drink any alcohol in the future Pending Studies at Discharge: No Stand-Alone Forms: My [employer], Smoking Cessation Skilled Items Lines: None Urinary Catheter: No Medications and DC Order Prescriptions: New miconazole nitrate [Miconazole 7] 100 mg Suppository 1 supp vaginal HS Qty: 5 RF: 0 Continued acetaminophen 325 mg Tablet 650 mg PO QID PRN (Reason: Fever Or Pain) RF: 0 pantoprazole 20 mg tablet,delayed release (DR/EC) 20 mg PO DAILY RF: 0 calcium carbonate [Tums] 200 mg calcium (500 mg) Tablet,Chewable See Rx Instructions .ROUTE .COMPLEX MDD 15 Tablets/24 Hours PRN (Reason: Antacid) RF: 0 loratadine [Claritin] 10 mg Tablet 10 mg PO DAILY PRN (Reason: Allergy Symptoms) RF: 0 melatonin 5 mg Tablet 5 mg PO HS PRN (Reason: Sleep) RF: 0 Lo Loestrin Fe 1 mg-10 mcg (24)/10 mcg (2) tablet 1 tab PO DAILY RF: 0 Changed levetiracetam 500 mg tablet 500 mg PO BID Qty: 28 RF: 0 Discontinued doxepin 50 mg Capsule 50 mg PO HS PRN (Reason: Insomnia) RF: 0 clonidine HCl 0.1 mg Tablet 0.1 mg PO TID PRN (Reason: RLS) RF: 0 naloxone 0.4 mg/mL Solution 0.4 mg IM DIRECTED PRN (Reason: Sedation) RF: 0 ondansetron HCl [Zofran] 8 mg Tablet 8 mg PO TID PRN (Reason: Nausea) RF: 0 loperamide [Imodium A-D] 2 mg Tablet 4 mg PO QID PRN (Reason: Diarrhea) RF: 0 thiamine HCl (vitamin B1) 100 mg Tablet 100 mg PO DAILY RF: 0 hydroxyzine pamoate [Vistaril] 50 mg Capsule 50 mg PO TID PRN (Reason: Anxiety) RF: 0 magnesium hydroxide [Milk of Magnesia] 400 mg/5 mL Suspension 30 ml PO DAILY PRN (Reason: Constipation) RF: 0 dicyclomine 20 mg Tablet 20 mg PO TID PRN (Reason: Abdominal Pain) RF: 0 diphenhydramine HCl [Benadryl] 25 mg Capsule 25 - 50 mg PO Q6H PRN (Reason: Unknown) RF: 0 promethazine 25 mg Tablet 25 mg PO QID PRN (Reason: Nausea) RF: 0 docusate sodium [Colace] 100 mg Capsule 100 mg PO DAILY PRN (Reason: Constipation) RF: 0 simethicone [Gas-X Extra Strength] 125 mg Tablet,Chewable 250 mg PO BID PRN (Reason: Gas) RF: 0 folic acid 1 mg Tablet 1 mg PO DAILY RF: 0 alum-mag hydroxide-simeth [Maalox Advanced] 200-200-20 mg/5 mL Suspension 30 ml PO TID PRN (Reason: Antacid) RF: 0 ibuprofen 600 mg Tablet 600 mg PO QID PRN (Reason: Pain) RF: 0 polyethylene glycol 3350 [Miralax] 17 gram/dose Powder See Rx Instructions .ROUTE .COMPLEX PRN (Reason: Constipation) RF: 0 bisacodyl 5 mg Tablet 15 mg PO DAILY PRN (Reason: Constipation) RF: 0 Cough Drops 2.7 mg Lozenge See Rx Instructions .ROUTE .COMPLEX PRN (Reason: Cough) RF: 0 Excedrin Otc 2 tabs PO Q6H MDD 8 Tablets/24 Hours PRN (Reason: Pain) RF: 0 Mucinex 400 Mg 400 MG tablet 400 mg PO Q6H PRN (Reason: Congestion) RF: 0 diazepam [Valium] 10 mg Tablet 10 mg PO DIRECTED PRN (Reason: Withdrawal S/S) RF: 0 diazepam [Valium] 10 mg Tablet See Rx Instructions .ROUTE .COMPLEX RF: 0 diazepam [Valium] 10 mg Tablet 10 mg PO DIRECTED PRN (Reason: Withdrawal S/S) RF: 0 Discharge Orders: Discharge Order (Routine); Ordered 12/02/19 Ordered By: Hakeem Galvez Admission Data Admit Date/Time: 11/29/19 16:01 Attending Provider: Hakeem Galvez Admit Provider: Gilbert Palacio Primary Care Provider: PCP,NO Other Providers: Gilbert Palacio Other Interventions: Discharge Summary Assessment (RN) Last Done: 12/02/19 09:55 DC Date/Time DO NOT enter until pt leaves facility: 12/02/19 10:39 Coding Level of Care Code D/C Day Management >30 mins Diagnoses Pancreatitis K85.20 Acute pancreatitis complication: no infection or necrosis Chronicity: acute Pancreatitis type: alcohol induced Alcohol dependence F10.29 Substance use status: unspecified alcohol-induced disorder Hypokalemia E87.6 Transaminitis R74.0 Hepatitis K75.9 Vaginal candidiasis B37.3
== END 2019-12-02 10:39 | disposition alcohol treatment (31) | DRG 440 ==
LOC: ED 14:30 → 2N 16:01 → SUATTDRO 16:01 → 2N 16:43 → 3E 11-30 22:52